=== PATIENT | female | born 1950 | race Caucasian/White ===

== ENCOUNTER 2020-09-05 07:11 | Day surgery (SDC) | payer MEDICARE, SELFPAY ==
[2020-08-28 18:49] VITALS: BMI 23.6
--- NOTE | 2020-09-03 16:45 | HP_ITS ---
DATE OF SERVICE: 09/05/2020 PREOPERATIVE DIAGNOSIS: Hallux abductovalgus deformity, left foot. PLANNED PROCEDURE: Left foot Vi bunionectomy. PAST MEDICAL HISTORY: Significant for CAD, cancer, cataracts, hiatal hernia, high blood pressure, macular degeneration, multiple sclerosis, osteopenia, measles, chickenpox, bone implants and screws, and bursitis. SURGICAL HISTORY: Left foot rotator cuff surgery, right shoulder surgery, bladder suspension x2, and vaginal surgery. CURRENT MEDICATIONS: Amlodipine, calcium and vitamin D, fish oil, pravastatin, and turmeric. FAMILY HISTORY: Significant for heart disease, stroke, and arthritis. SOCIAL HISTORY: Patient is a nonsmoker. Denies any illicit drug use or alcohol use. She is a retired nurse, with 2 children. ALLERGIES: IODINATED DIAGNOSTIC AGENTS. HOSPITALIZATIONS: Denies. REVIEW OF SYSTEMS: Within normal limits. HISTORY OF PRESENT ILLNESS: This is a 70-year-old female, who presents with aching and tenderness in her left great toe joint for several years. It has been getting worse in the last year, has been gradually getting more progressive. Relates pain with pressure, standing, walking. Has tried rest, change in shoes without any significant relief in symptoms. PHYSICAL EXAMINATION: GENERAL: A pleasant alert, well-nourished, well hydrated individual who demonstrates proper attention to body habitus, in no acute distress and she is oriented to person, place, and time. NEUROLOGIC: Reveals intact sensorium. Pain sensation is normal. Vibratory sensation is intact. The patient denies any anesthesias, burning, paresthesias, or tingling bilaterally. VASCULAR: DP and PT pulses are 3/4 bilaterally. Capillary refill is immediate to all digits. Skin temperature, elasticity, and turgor is normal. Pigmentation is normal. There is no edema. DERMATOLOGIC: Reveals signs of erythema and scaling in a moccasin-type fashion bilaterally. ORTHOPEDIC: Muscle strength 5/5 in all muscle groups in a symmetrical fashion bilaterally. There is a medially prominent first metatarsophalangeal joint in the left foot with pain on palpation and inflammation present. Erythema at exostosis and lateral tracking of the first MPJ incompletely reducible on the left side. DIAGNOSTIC DATA: X-rays reveal an increased first IM angle and hallux abductus angle consistent with bunion deformity, hypertrophy of the dorsal medial first metatarsal head without subchondral cyst and left metatarsal adductus is increased. PLAN: Patient is scheduled for surgery. Several types of bunion surgeries have been discussed with the patient, including but not limited to, modified Garcia bunionectomy, Lorenzo/Vi bunionectomy, scarf versus base wedge osteotomy with internal fixation and a Lapidus fusion. Discussed the risks of having surgery and not having surgery as well as the potential surgical complications including, but not limited to, pain, swelling, bleeding, scarring, numbness, infection, delayed or nonhealing, floppy toe, unstable toe, shortened toe, recurrence, failure of the procedure, over-correction, we need to plantar flex downward or upward position of the toe, need for further surgery, as well as possibility of loss of toe, foot, life, or limb. Discussed use of IV and local or regional anesthesia as well as MAC anesthesia and the usual postoperative course. No guarantees were given. The patient verbally indicated full understanding of the above conversation as well as their questions were answered to their satisfaction. We decided on performing a Vi bunionectomy based on the patient's complaint, medical history, social history, physical exam, x-ray analysis as well. Discussed the patient metatarsal adductus and potential for recurrence. However, given patient's bone stock, I am hesitant to move forward with a base procedure or Lapidus. The patient would like to proceed with surgical treatment. The patient will obtain preoperative labs as well as medical clearance for surgery and anesthesia. She was made aware to stop any and all blood thinners including fish oil and ocro-zei-[id number] aspirin at least 1 week prior to surgery. She is made aware that driving may not be allowed during a portion of the postoperative period. Narcotic pain medications were deferred. The patient recommends staggering taking alternating Tylenol extra strength 2 tablets and Motrin 800 mg as needed for discomfort. The patient will be partial weightbearing in a surgical shoe or boot postoperatively with crutches as needed. The patient will follow up for all postoperative followup care in my office. Antonina De Luna DPM LP/HARSHAL / [id number] WILD
--- NOTE | 2020-09-04 10:45 | HO.ANESPROP2 ---
Documented by User: Jill Villagran 09/04/20 10:48 HPI - Anesthesia Eval Consult details Narrative: 70yo F for Left Lorenzo Bunionectomy PCP cleared [facility] Past Medical History Medical History (Updated 09/05/20 @ 08:21 by Tena García) Back pain Basal cell carcinoma Bursitis HTN (hypertension) Hypercholesteremia Surgical History Surgical History History of arthroscopy of right shoulder History of bladder suspension procedure History of colonoscopy History of rotator cuff surgery History of tonsillectomy Social History Social History Patient Tobacco Use Status: Never used Tobacco Use of substances other than those prescribed or required for medical reasons: No Are you DNR?: No Advance Directives: Yes Advance Directives Information Provided: Yes Advance Directives on File: No (will bring in) Advance Directives Date on File: 05/07/11 Meds Allergies Allergy/AdvReac Type Severity Reaction Status Date / Time Iodinated Contrast Media Allergy Mild RASH Verified 09/05/20 07:33 [IVP DYE] Home Medications Medication Instructions Recorded Confirmed Last Taken Type amlodipine 1 tab PO DAILY 08/28/20 08/28/20 Unknown History pravastatin 1 tab PO DAILY 08/28/20 08/28/20 Unknown History Exam Exam Date and Time: September 04, 2020 1045 Height,Weight and Vital Signs: Height 5 ft 1 in Weight 56.699 kg Narrative Narrative: EKG 08/2020 NSR @ 79 Assessment and Plan Assessment Anesthesia Assessment: Chart Reviewed Documented by User: Tena García 09/05/20 08:22 [facility] Past Medical History Medical History (Updated 09/05/20 @ 08:21 by Tena García) Back pain Basal cell carcinoma Bursitis HTN (hypertension) Hypercholesteremia Family History Family history of problems with anesthesia: No Surgical History Surgical History History of arthroscopy of right shoulder History of bladder suspension procedure History of colonoscopy History of rotator cuff surgery History of tonsillectomy History of Problems with Anesthesia: No Social History Social History Patient Tobacco Use Status: Never used Tobacco Use of substances other than those prescribed or required for medical reasons: No Are you DNR?: No Advance Directives: Yes Advance Directives Information Provided: Yes Advance Directives on File: No (will bring in) Advance Directives Date on File: 05/07/11 Meds Allergies Allergy/AdvReac Type Severity Reaction Status Date / Time Iodinated Contrast Media Allergy Mild RASH Verified 09/05/20 07:33 [IVP DYE] Home Medications Medication Instructions Recorded Confirmed Last Taken Type amlodipine 1 tab PO DAILY 08/28/20 08/28/20 Unknown History pravastatin 1 tab PO DAILY 08/28/20 08/28/20 Unknown History Exam Height,Weight and Vital Signs: Vital Signs Temp Pulse Resp BP Pulse Ox 09/05/20 07:34 98.0 F 76 16 146/83 H 97 Airway Mallampati Class: II TM Dist: >3cm Neck ROM: Full Heart: RRR Lungs: CTAB Assessment and Plan Assessment Anesthesia Assessment: Anesthesia Plan Discussed and Chart Reviewed Final Anesthetic Review NPO: Yes ASA Class: II Final Preanesthetic Review: No Changes in Pt Med Stat, Meds/Allgs Chart Reviewed, Consent Obtained/Reviewed and Anes Risks/Benef Reviewed Patient Risk: Low Procedure Risk: Low Assessment/Block/Sedation in SS: Assess/Block/Sedation-SS Anesthetic Plan Anesthetic Plan: MAC: Disposition: Standard PACU
[2020-09-05 07:34] VITALS: BP 146/83; PULSE 76; RESP 16; TEMP 36.7; O2SAT 97
[2020-09-05] MEDS: Lactated Ringers 1,000 ML 100 ML IVCONT (07:55)
--- NOTE | 2020-09-05 08:21 | MHC.SHP ---
Pre-Procedural Eval Section A The patient is an INPATIENT: No Changes since office visit: No Cold of Flu in the past 2 weeks, No New Medical Problems, No Changes in Medication and No Patient answered all questions The History & Physical has been completed within 30 days and I have reviewed it.: Yes Section B Chief Complaint: Hallux Valgus Allergies: Allergies Allergy/AdvReac Type Severity Reaction Status Date / Time Iodinated Contrast Media Allergy Mild RASH Verified 09/05/20 07:33 [IVP DYE] Plan I have reviewed the history and physical and performed a pertinent physical examination on my patient. No changes have occurred unless specified.
--- NOTE | 2020-09-05 09:20 | P.BOP_ITS ---
Brief Operative Note Date of Service: 09/05/20 Pre-op diagnosis: Left hallux abducto valgus Post-op diagnosis: same Procedure: Left Vi bunionectomy Implants: 2 Peck screws Surgeon: Antonina De Luna Anesthesia: MAC Was an General Science Teacher used for this Procedure?: Yes General Science Teacher: Brian Jeffrey Estimated blood loss (mL): 5 Tourniquet time (min): 23 Pathology: other Condition: stable Disposition: PACU
[2020-09-05 09:21] VITALS: BP 101/63; PULSE 70; RESP 14; TEMP 36.1; O2SAT 95
[2020-09-05 09:36] VITALS: BP 141/74; PULSE 70; RESP 17; TEMP 36.1; O2SAT 98
--- NOTE | 2020-09-05 10:08 | OP_ITS ---
SURGEON: Antonina De Luna DPM PREOPERATIVE DIAGNOSIS: Hallux abductovalgus deformity, left foot. POSTOPERATIVE DIAGNOSIS: Hallux abductovalgus deformity, left foot. PROCEDURE PERFORMED: Left foot Vi bunionectomy. ESTIMATED BLOOD LOSS: Less than 5 mL. COMPLICATIONS: None. ANESTHESIA: Monitored anesthetic care with local consisting preoperatively of 0.5% Marcaine plain and 2% lidocaine plain and postoperatively of 0.5% Marcaine plain. SUPERVISORY INVESTIGATIVE SPECIALIST: Brian Jeffrey DPM SPECIMENS: Bone left foot HEMOSTASIS: Pneumatic ankle tourniquet set at 215 mmHg for 23 minutes. INDICATIONS FOR SURGERY: Has a painful bunion deformity noted to the left foot that failed conservative therapies. The above-mentioned surgery was discussed in detail with the patient including risks, benefits, and possible complications. No guarantees were given and written and oral informed consent was obtained. PROCEDURE IN DETAIL: The patient was brought into the operating room, placed on the operating table in the supine position. 2 g of cefazolin was administered preoperatively. The left foot was anesthetized with 15 mL of a 1:1 mixture of 2% lidocaine plain and 0.5% Marcaine plain and the left foot was scrubbed, prepped, and draped in a sterile manner. Attention was directed to the left foot. After the pneumatic ankle tourniquet was inflated, an incision was made overlying the first metatarsophalangeal joint, approximately 8 cm in length. Incision was deepened down through subcutaneous tissue with great care being taken to retract vital, neuro and vascular structures and all bleeders were cauterized as necessary. A linear capsulotomy was made medial and parallel to the extensor tendons and soft tissues were freed from the head of the first metatarsal. The medial eminence was resected and passed from the operative site using power instrumentation. Attention was then directed via the same incision to the first metatarsal space where a lateral release was performed. The deep transverse intermetatarsal ligament was transected, the fibular sesamoidal ligament, the head of the adductor tendon allowing the first metatarsal head to drift into a more corrected position. Attention was then directed back to the medial aspect of the 1st metatarsal head where a V-type osteotomy was created with the wings pointing plantarly proximally and dorsally proximally with a long dorsal arm. The osteotomy was completed and the capital fragment was translocated laterally and impacted upon the 1st metatarsal shaft. Two Exhbit Asnis screws were then placed, 16 mm, 17 mm under standard technique through the osteotomy site and a stable construct was noted. It should be noted that the patient's bone stock was quite soft. Good compression and screw fixation were noted; however, there was some osteopenia noted to the bone quality. The remaining medial eminence was then transected and passed from the operative site. The wound was irrigated with normal sterile saline. The capsular structures reapproximated with 3-0 Vicryl in a continuous running fashion. A piece of AmnioFix was placed intracapsular and 1 extracapsular. The skin was reapproximated with 5-0 Monocryl in a continuous running fashion. The skin was then dressed with ZipLine from Exhbit. A postoperative injection of 0.5% Marcaine plain 5 mL was administered and the foot was dressed with Adaptic, 4x4s soaked in Betadine, fluffs, Barrett, cast padding, and an Melecio bandage. Pneumatic ankle tourniquet was deflated. Prompt capillary refill was noted to all 5 digits. The patient tolerated the procedure and anesthesia well. The patient was transferred to the recovery room with vital signs stable and vascular status at preoperative levels. Following a period of postoperative recovery, the patient will be discharged home with written and oral postoperative instructions. The patient is to follow up my office for all postoperative followup care. She will be partial weightbearing to the heel of the left foot in a surgical shoe with crutches or walker as needed for stability. Antonina De Luna DPM LP/HARSHAL / [id number] WILD
== END 2020-09-05 10:30 | disposition home or self-care (01) ==
PROVIDERS: PCP Internal Medicine; Visit Provider Podiatrist
PROC: (CPT 28292; principal; 2020-09-05 08:50)
DX: M20.12 Hallux valgus (acquired), left foot (principal); M85.872 Other specified disorders of bone density and structure, left ankle and foot; I10 Essential (primary) hypertension; Z85.828 Personal history of other malignant neoplasm of skin; Z91.041 Radiographic dye allergy status; Z79.899 Other long term (current) drug therapy
CPT/HCPCS: 28296; 88304; 88311; C1713; J0690; J1100; J2250; J3010; J3590

== ENCOUNTER 2022-08-29 09:45 | Outpatient (REF) | payer MEDICARE, SELFPAY | END 2022-08-29 09:46 | disposition home or self-care (01) | LOC: HO.LAB 09:45 | PROVIDERS: Visit Provider Nurse Practitioner Family | DX: N39.0 Urinary tract infection, site not specified (principal) | CPT/HCPCS: 87086; 87088; 87186 ==

== ENCOUNTER 2022-11-09 23:28 | Emergency (ER) | payer MEDICARE, SELFPAY ==
--- NOTE | ~2022-11-09 | CT_ITS ---
EXAMINATION: CT ABDOMEN AND PELVIS WITHOUT CONTRAST CLINICAL INFORMATION: Flank pain. COMPARISON: None available. TECHNIQUE: Multidetector volumetric imaging was performed from the superior aspect of the liver through the pubic symphysis. Sagittal and coronal reformatted images were obtained on the technologist's workstation. This CT examination was performed using dose optimization techniques as appropriate, variously including the following: *Automated exposure control *Adjustment of mA and/or kV according to patient size (this includes techniques or standardized protocols for targeted exams where dose is matched to indication/reason for exam; i.e. extremities or head) *Use of iterative reconstruction technique DLP: 363 mGy-cm FINDINGS: LUNG BASES: The visualized lung bases are unremarkable. LIVER, GALLBLADDER, AND BILIARY TREE: The liver is normal in size, shape, and attenuation. No focal hepatic lesion or biliary ductal dilatation is present. The gallbladder is unremarkable with no evidence of radiopaque gallstones, gallbladder wall thickening, or obvious pericholecystic inflammatory changes. PANCREAS: Unremarkable. SPLEEN: Unremarkable. ADRENAL GLANDS: Unremarkable. KIDNEYS AND URETERS: The kidneys are normal in size, shape, and attenuation. There is a 2 mm nonobstructing calculus mid to lower pole left kidney. No hydronephrosis or hydroureter. No perinephric stranding. There are subcentimeter hypodensities lower pole of the left kidney possibly cysts. BLADDER: Unremarkable. GASTROINTESTINAL TRACT: The appendix is visualized and is within normal limits. There are thickened the iux-te-cdmpdb small bowel loops in the right abdomen. There are a few diverticula of the sigmoid colon without diverticulitis. ABDOMINAL WALL: No significant hernia is appreciated. LYMPH NODES: Normal. VASCULAR: There is atherosclerotic plaque of the abdominal aorta and proximal branches. PELVIC VISCERA: Unremarkable. OSSEOUS STRUCTURES: There is mild diffuse thoracolumbar disc degenerative change with minimal anterolisthesis L4 over L5. There is mild to moderate mid to lower lumbar facet degenerative change. CT/CT abdomen pelvis wo IV con IMPRESSION: 1. Mildly thickened mid to distal small bowel loops in the right abdomen suggests an enteritis. 2. Nonobstructing left renal calculus. Fleischner guidelines were followed.
[2022-11-10 00:19] VITALS: BP 205/92; PULSE 82; RESP 18; TEMP 36.8; O2SAT 98; BMI 24.6
[2022-11-10 00:36] VITALS: BP 178/91; PULSE 85; RESP 18; TEMP 36.6; O2SAT 98
--- NOTE | 2022-11-10 00:36 | ED_ITS ---
HPI - General Adult General Chief complaint: General Medical Stated complaint: ?UTI/Pelvic pain Time Seen by Provider: 11/10/22 00:24 Source: patient Mode of arrival: ambulatory Limitations: no limitations History of Present Illness HPI narrative: Patient with history of hypertension high cholesterol basal cell carcinoma and urinary retention use a straight cath every day for last few months with history of recurrent UTIs comes here as having increased pain in the suprapubic area with cloudy urine and pain in the right abdominal area no fever no chills Related Data Home Medications Medication Instructions Recorded Confirmed amlodipine 2.5 mg tablet 1 tab PO DAILY 08/28/20 08/29/22 pravastatin 40 mg tablet 1 tab PO DAILY 08/28/20 08/29/22 D Manose PO 08/29/22 08/29/22 Previous Rx's Medication Instructions Recorded sulfamethoxazole 800 1 tab PO BID 5 days #10 tabs 09/02/22 mg-trimethoprim 160 mg tablet (Bactrim DS) cefuroxime axetil 250 mg tablet 250 mg PO BID 7 days #14 tabs 11/10/22 Allergies Allergy/AdvReac Type Severity Reaction Status Date / Time Iodinated Contrast Media Allergy Mild RASH Verified 08/29/22 09:46 [IVP DYE] Review of Systems Review of Systems: Yes all other systems are reviewed and are negative PMFSH Past Medical History Medical History Back pain Basal cell carcinoma Bursitis HTN (hypertension) Hypercholesteremia Surgical History History of arthroscopy of right shoulder History of bladder suspension procedure History of colonoscopy History of rotator cuff surgery History of tonsillectomy Social History Social History Patient Tobacco Use Status: Never used Tobacco Advance Directives: Yes Advance Directives on File: Yes Advance Directives Date on File: 09/05/20 Physical Exam ED Vital Signs: Vital Signs - 24 hr 11/10/22 00:19 11/10/22 00:36 Temperature 98.3 F 97.9 F Pulse Rate 82 85 Respiratory Rate 18 18 Blood Pressure 205/92 H 178/91 H Pulse Oximetry 98 98 Oxygen Delivery Method Room Air Room Air BMI result Body Mass Index 24.6 Appearance: Alert. Oriented X3. No acute distress. Eyes: No pallor icterus ENT: Pharynx normal. Oral Mucosa moist Neck: Normal inspection. Neck supple. CVS: Normal heart rate and rhythm. Pulses normal. Respiratory: No respiratory distress. Equal air entry bilateral, no wheezing/rales/rhonchi Abdomen: Soft, tenderness suprapubic area and right mid abdomen. Bowel sounds are present, no mass palpable, no CVA tenderness Skin: Skin warm and dry. Normal skin color. Normal skin turgor. Extremities: No lower extremity edema. No calf tenderness Neuro: Oriented X 3. No motor deficit. Medical Decision Making Medical Decision Making [facility] Narrative: Patient likely with UTI will give dose of Rocephin CT scan abdomen is negative for acute, constipated++, discharge patient home on Ceftin Differential Diagnosis Differential Diagnoses: The differential diagnosis associated with the presentation includes UTI/kidney stone/pelvic mass Lab Data [facility] Lab Attestation statement: I reviewed the patient's lab results. 11/10/22 00:45 11/10/22 00:45 Labs: Lab Results 11/10/22 11/10/22 11/10/22 Range/Units 00:45 00:45 00:48 WBC 12.3 H (4.8-10.8) X10*3/uL RBC 4.21 (4.20-5.50) X10*6/uL Hgb 13.1 (12.0-16.0) g/dl Hct 38.8 (37.0-47.0) % MCV 92.2 (80.0-98.0) fL MCH 31.1 (27.0-33.0) pg MCHC 33.8 (31.0-35.0) g/dl RDW 12.8 (11.0-16.0) % Plt Count 295 (160-400) X10*3/uL MPV 8.9 L (9.4-12.3) fL Absolute Nucleated RBC 0.000 (0.0-0.012) X10*3/uL Nucleated RBC % (auto) 0.0 (0.0-0.2) /100WBC Sodium 141 (135-145) mmol/L Potassium 3.6 (3.3-5.1) mmol/L Chloride 105 (96-108) mmol/L Carbon Dioxide 26 (22-29) mmol/L Anion Gap 14 (12-20) BUN 17 H (9-16) mg/dL Creatinine 0.68 (0.5-1.4) mg/dL Estim Creat Clear Calc 59.8 Estimated GFR > 60 Random Glucose 123 H (60-115) mg/dL Lactic Acid 0.9 (0.5-2.0) mmol/L Calcium 9.8 (8.4-10.2) mg/dL Total Bilirubin 1.5 H (0.0-1.0) mg/dL AST 23 (5-31) U/L ALT 23 (0-31) U/L Alkaline Phosphatase 70 (39-117) U/L Total Protein 7.4 (6.5-8.0) g/dL Albumin 4.6 (3.5-5.0) g/dL Urine Color Urine Appearance Urine pH (5.0-9.0) Ur Specific [place] (1.005-1.025) Urine Protein (Neg-Trace) mg/dL Urine Glucose (UA) (Negative) mg/dL Urine Ketones (Negative) mg/dL Urine Blood (Negative) Urine Nitrite (Negative) Ur Leukocyte Esterase (Negative) 11/10/22 Range/Units 01:30 WBC (4.8-10.8) X10*3/uL RBC (4.20-5.50) X10*6/uL Hgb (12.0-16.0) g/dl Hct (37.0-47.0) % MCV (80.0-98.0) fL MCH (27.0-33.0) pg MCHC (31.0-35.0) g/dl RDW (11.0-16.0) % Plt Count (160-400) X10*3/uL MPV (9.4-12.3) fL Absolute Nucleated RBC (0.0-0.012) X10*3/uL Nucleated RBC % (auto) (0.0-0.2) /100WBC Sodium (135-145) mmol/L Potassium (3.3-5.1) mmol/L Chloride (96-108) mmol/L Carbon Dioxide (22-29) mmol/L Anion Gap (12-20) BUN (9-16) mg/dL Creatinine (0.5-1.4) mg/dL Estim Creat Clear Calc Estimated GFR Random Glucose (60-115) mg/dL Lactic Acid (0.5-2.0) mmol/L Calcium (8.4-10.2) mg/dL Total Bilirubin (0.0-1.0) mg/dL AST (5-31) U/L ALT (0-31) U/L Alkaline Phosphatase (39-117) U/L Total Protein (6.5-8.0) g/dL Albumin (3.5-5.0) g/dL Urine Color Yellow Urine Appearance Clear Urine pH 7.5 (5.0-9.0) Ur Specific [place] 1.015 (1.005-1.025) Urine Protein Negative (Neg-Trace) mg/dL Urine Glucose (UA) Negative (Negative) mg/dL Urine Ketones Trace (Negative) mg/dL Urine Blood Negative (Negative) Urine Nitrite Positive H (Negative) Ur Leukocyte Esterase Large (3+) H (Negative) Discharge Plan Discharge Clinical Impression: UTI (urinary tract infection), Constipation Patient Disposition: Home, Self-Care Instructions: Constipation (ED), Urinary Tract Infection in Women (ED) Additional Instructions: Drink plenty of fluids Take antibiotic as prescribed Follow with urologist tomorrow as scheduled Take MiraLax and Colace daily Prescriptions: New cefuroxime axetil 250 mg tablet 250 mg PO BID 7 Days Qty: 14 0RF No Action sulfamethoxazole-trimethoprim [Bactrim DS] 800-160 mg tablet 1 tab PO BID 5 Days Qty: 10 0RF pravastatin 40 mg tablet 1 tab PO DAILY amlodipine 2.5 mg tablet 1 tab PO DAILY D Manose PO
[2022-11-10 00:49] LABS: Hematocrit 38.8 % (37.0-47.0); Hemoglobin 13.1 g/dl (12.0-16.0); Mean Corpuscular HGB Conc 33.8 g/dl (31.0-35.0); Mean Corpuscular Hemoglobin 31.1 pg (27.0-33.0); Mean Corpuscular Volume 92.2 fL (80.0-98.0); Mean Platelet Volume 8.9 fL (9.4-12.3); Platelet Count 295 X10*3/uL (160-400); Red Blood Count 4.21 X10*6/uL (4.20-5.50); Red Cell Distribution Width 12.8 % (11.0-16.0); White Blood Count 12.3 X10*3/uL (4.8-10.8)
[2022-11-10 01:03] LABS: Alanine Aminotransferase 23 U/L (0-31); Albumin Level 4.6 g/dL (3.5-5.0); Alkaline Phosphatase 70 U/L (39-117); Anion Gap 14 (12-20); Aspartate Amino Transferase 23 U/L (5-31); Bilirubin Total 1.5 mg/dL (0.0-1.0); Blood Urea Nitrogen 17 mg/dL (9-16); Calcium 9.8 mg/dL (8.4-10.2); Carbon Dioxide 26 mmol/L (22-29); Chloride 105 mmol/L (96-108); Creatinine Clr Calc Pharmacy 59.8; Estimated Glomerular Filt Rate > 60; Glucose Random 123 mg/dL (60-115); Potassium 3.6 mmol/L (3.3-5.1); Sodium 141 mmol/L (135-145); Total Protein 7.4 g/dL (6.5-8.0)
[2022-11-10 01:07] LABS: Lactic Acid 0.9 mmol/L (0.5-2.0)
[2022-11-10 01:38] LABS: Appearance Urine Clear; Color Urine Yellow; Glucose Urine UA Negative (Negative); Leukocyte Esterase Urine Large (3+) (Negative); Nitrite Urine Positive (Negative); PH 7.5 (5.0-9.0); Specific Gravity - Urine 1.015 (1.005-1.025); UMIC TRIGGER UACC YES; Urine Blood Negative (Negative); Urine Ketones Trace mg/dL (Negative); Urine Protein Negative (Neg-Trace)
[2022-11-10] MEDS: Milk of Magnesia 30 ML ORAL.SUSP PO (02:43)
[2022-11-10] MEDS: ondansetron HCL 4 MG/2 ML VIAL IVPUSH (02:43)
[2022-11-10] MEDS: Ketorolac Tromethamine 30 MG/ML VIAL IVPUSH (02:43)
[2022-11-10] MEDS: 0.9 % Sodium Chloride 1,000 ML 999 ML IV (02:44)
[2022-11-10] MEDS: cefTRIAXone sodium 1 GM in 0.9 % Sodium Chloride 50 ML IV (02:44)
[2022-11-10 03:47] VITALS: BP 174/91; PULSE 81; RESP 18; TEMP 36.8; O2SAT 98
--- NOTE | 2022-11-10 04:09 | PC.NURSE ---
Dr. Ramírez aware of pt's BP 174/91, patient is asymptomatic, no new orders at this time.
[2022-11-10 07:23] LABS: Bacteria Urine 4+ (None Seen); Hyaline Casts Urine 0-2 /LPF (0-2); RBC Urine 0-2 /HPF (0-2); Squamous Epithelial Cell Urine 0-2 /HPF (0-2); UACC Culture Trigger YES; WBC Urine >50 /HPF (0-5)
== END 2022-11-10 04:11 | disposition home or self-care (01) ==
PROVIDERS: Emergency Provider Internal Medicine
DX: N39.0 Urinary tract infection, site not specified (principal); K59.00 Constipation, unspecified; R10.2 Pelvic and perineal pain; Z79.899 Other long term (current) drug therapy
CPT/HCPCS: 36415; 74176; 80053; 81001; 83605; 85027; 87040; 87086; 87088; 87186; 96374; 96375; 99284; 99285; J0696; J1885; J2405